=== PATIENT | male | born 1995 | race Caucasian/White ===

== ENCOUNTER 2017-03-01 06:59 | Emergency (ER) | payer MEDICAID, OTHER ==
[~2017-03-01] VITALS: Ht 157.5 cm; Wt 72.5 kg
[2017-03-01 07:06] VITALS: Ht 157.5 cm; Wt 72.5 kg
[2017-03-01] MEDS ORDERED: HYDROCODONE/APAP (5/325) TAB PO ONE (08:00)
--- NOTE | 2017-03-01 08:28 | RADRPT ---
PROCEDURE: XR Chest. CLINICAL INDICATION: chest pain, dizziness TECHNIQUE: Single frontal view of the chest was obtained COMPARISON: None FINDINGS: The heart and mediastinum are within normal limits. The lungs are clear. There is no pleural effusion or pneumothorax. RPTAT: AA IMPRESSION: No acute disease. .Steve Higgins MD, MD Date Time Electronically viewed and signed by .Steve Higgins MD, on 03/01/2017 08:27 .S/
--- NOTE | 2017-03-01 08:54 | ERD ---
ER Documentation Chief Complaint Date/Time DATE: 03/01/17 TIME: 08:48 Chief Complaint Patient complains of feeling anxious with palpitations and weakness since HPI This is a 21-year-old male who presents the emergency department today complaining of chest pain and palpitations and feeling like his heart is going to go out of his chest. States that he feels shortness of breath when that happens. 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 He stated that he felt dizzy also. Denies any increased stress in his life, fevers or chills. States he has not taken any medication for the pain ROS All systems reviewed and are negative except as per history of present illness. Medications Home Meds Active Scripts Naproxen* (Naprosyn*) 500 Mg Tablet, 500 MG PO BID Y for PAIN AND/OR INFLAMMATION, #30 TAB Prov:LESA UMANZOR PA-C 03/01/17 Allergies Allergies: Coded Allergies: No Known Allergy (Unverified , 03/01/17) PMhx/Soc Medical and Surgical Hx: pt denies Medical Hx, pt denies Surgical Hx Physical Exam Vitals Vital Signs Date Time Temp Pulse Resp B/P Pulse Ox O2 Delivery O2 Flow Rate FiO2 03/01/17 07:06 98.3 81 20 133/84 99 Physical Exam Const: NAD Head: Atraumatic Eyes: Normal Conjunctiva ENT: Normal External Ears, Nose and Mouth. Neck: Full range of motion..~ No meningismus. Resp: Clear to auscultation bilaterally. No absent breath sounds. No wheezing. Tenderness to palpation chest wall and pain with trunk rotation to the right Cardio: Regular rate and rhythm, no murmurs Abd: Soft, non tender, non distended. Normal bowel sounds Skin: No petechiae or rashes Back: No midline or flank tenderness Ext: No cyanosis, or edema Neur: Awake and alert Psych: Normal Mood and Affect Results 24 hrs Laboratory Tests Test 03/01/17 07:51 Bedside Glucose 105mg/dL Current Medications Medications (Trade) Dose Ordered Sig/Sudhakar Route PRN Reason Start Time Stop Time Status Last Admin Dose Admin Acetaminophen/ Hydrocodone Bitart ([place] (5/325)) 1 tab ONCE ONCE PO 03/01/17 08:00 03/01/17 08:01 DC 03/01/17 07:46 DIAGNOSTIC IMAGING REPORT Patient: MALCOLM DUONG : 1995 Age: 21 Sex: M MR #: [id number] DOS: 03/01/17 0000 Ordering MD: LESA UMANZOR PA-C Location: [facility], [facility] Room/Bed: PROCEDURE: XR Chest. CLINICAL INDICATION: chest pain, dizziness TECHNIQUE: Single frontal view of the chest was obtained COMPARISON: None FINDINGS: The heart and mediastinum are within normal limits. The lungs are clear. There is no pleural effusion or pneumothorax. RPTAT: AA IMPRESSION: No acute disease. .Steve Higgins MD, MD Date Time Electronically viewed and signed by .Steve Higgins MD, MD on 03/01/2017 08: 27 .S/ CC: LESA UMANZOR PA-C Procedures/MDM This 21-year-old male who presents the emergency department today complaining of chest pain and feeling some shortness of breath and palpitations. Given patient's complaints I did obtain an EKG, chest x-ray and Accu-Chek. EKG read and interpreted by Dr. Escudero Rate [address] elevation. No QT prolongation. Normal sinus rhythm. Low suspicion for acute CA, PE, pericarditis Per the radiology report images of the chest x-ray showed no acute disease. There is no pleural effusion or pneumothorax. Lungs are clear. Low suspicion for pneumonia, PE, abscess, pleural effusion, pneumothorax Accu check 105 Low suspicion for hyperglycemia or hypogylcemia Patient symptoms at this time appear most consistent with chest wall pain likely costochondritis given the pain with palpation and trunk rotation to the right. I have explained this to the patient. Patient was given [place] here in the emergency department. Patient may also have anxiety related symptoms however he did not want to give him a benzodiazepine here in the emergency department as I had already given him [place].Patient will be given a prescription for Naprosyn for home. I have instructed him to drink plenty of fluids. At this time the patient is stable for discharge and outpatient management. Patient should follow up with their PCP in the next 1-2 days. They may return to the emergency department sooner for any persistent or worsening of symptoms. Patient understood and agreed with the plan. Departure Diagnosis: Primary Impression: Chest pain Chest pain type: unspecified Qualified Code: R07.9 - Chest pain, unspecified type Condition: LESA Hein PA-C Mar 01, 2017 08:54
[2017-03-01] MEDS ORDERED: NAPR-260 PO (08:56)
== END 2017-03-01 08:55 | disposition home or self-care (01) ==
LOC: FTE 06:59
DX: R07.9 Chest pain, unspecified (principal)
CPT/HCPCS: 71010; 82962; 93005; Z7502; Z7610

== ENCOUNTER 2017-08-01 23:44 | Emergency (ER) | END 2017-08-02 05:35 | disposition home or self-care (01) ==

== ENCOUNTER 2017-12-26 02:58 | Emergency (ER) | END 2017-12-26 06:05 | disposition home or self-care (01) ==